=== PATIENT | male | born 1985 | race Caucasian/White ===

== ENCOUNTER 2019-08-08 08:57 | Emergency (ER) | payer SELFPAY ==
[~2019-08-08] VITALS: Ht 167.6 cm; Wt 134.0 kg
[2019-08-08] MEDS ORDERED: BACITRACIN ZINC OINT UDPKT TOP ONE (10:15)
[2019-08-08] MEDS ORDERED: TETANUS, DIPHTHERIA, PERTUSSIS VAC/PF 0.5ML (>7YR OLD) IM ONE (10:15)
[2019-08-08] MEDS ORDERED: LIDOCAINE HCL/PF 1% 10 MG/ML 5ML VIAL IJ ONE (10:15)
[2019-08-08] MEDS ORDERED: HYDROCODONE/ACETAMINOPHEN 5/325MG TABLET PO ONE (10:15)
[2019-08-08 10:20] VITALS: BP 135/88
[2019-08-08] MEDS ORDERED: BACITRACIN 15GM TUBE TOP SCH (10:30)
== END 2019-08-08 11:47 | disposition home or self-care (01) ==
LOC: ER 08:57
DX: S01.81XA Laceration without foreign body of other part of head, initial encounter (principal); Y04.2XXA Assault by strike against or bumped into by another person, initial encounter; Y93.89 Activity, other specified; Y92.89 Other specified places as the place of occurrence of the external cause; Z23 Encounter for immunization
CPT/HCPCS: 12001; 70450; 90471; 90715; 99284; A4217; J3490; Z7610

== ENCOUNTER 2019-08-18 10:41 | Emergency (ER) | payer SELFPAY ==
[~2019-08-18] VITALS: Ht 167.6 cm; Wt 134.0 kg
[2019-08-18] MEDS ORDERED: LIDOCAINE HCL 1% 20ML VIAL (Pyxis) INJ INFIL ONE (12:45)
[2019-08-18] MEDS ORDERED: ACETAMINOPHEN 325MG TABLET PO ONE (12:45)
[2019-08-18] MEDS ORDERED: BACITRACIN ZINC OINT UDPKT TOP ONE (13:00)
[2019-08-18 13:24] VITALS: BP 131/77
== END 2019-08-18 13:25 | disposition home or self-care (01) ==
LOC: ER 10:41
DX: Z48.02 Encounter for removal of sutures (principal); L03.811 Cellulitis of head [any part, except face]; R03.0 Elevated blood-pressure reading, without diagnosis of hypertension
CPT/HCPCS: 99283; J3490; Z7610